=== PATIENT | female | born 1965 | race Caucasian/White ===

== ENCOUNTER 2017-11-09 13:12 | Emergency (ER) | payer MEDICAID ==
[~2017-11-09] VITALS: Ht 160 cm; Wt 99.6 kg
[2017-11-09 13:20] VITALS: BP 138/89
[2017-11-09] MEDS ORDERED: ACETAMINOPHEN 500 MG TABLET ONE (13:59)
[2017-11-09] MEDS ORDERED: ACETAMINOPHEN 500 MG TABLET PO ONE (14:00)
[2017-11-09] MEDS ORDERED: AMLO10TA2 PO (14:10)
[2017-11-09] MEDS ORDERED: BACL-19 PO (14:10)
== END 2017-11-09 14:59 | disposition home or self-care (01) ==
LOC: ED 14:15
DX: M25.561 Pain in right knee (principal); I10 Essential (primary) hypertension
CPT/HCPCS: 99284

== ENCOUNTER 2017-12-11 22:57 | Emergency (ER) | payer MEDICAID ==
[~2017-12-11] VITALS: Ht 162.6 cm; Wt 100.0 kg
[~2017-12-11 22:57] MED LIST: AMLO10TA6 PO; BACL-19 PO
[2017-12-11 23:04] VITALS: BP 168/102
[2017-12-11] MEDS ORDERED: PROPARACAINE OPHTH 0.5%, 15ML ONE (23:30)
[2017-12-11] MEDS ORDERED: FLUORESCEIN OPHTHALMIC 1 MG STRIP LEFTEYE ONE (23:30)
[2017-12-11] MEDS ORDERED: PROPARACAINE OPHTH 0.5%, 15ML LEFTEYE ONE (23:30)
== END 2017-12-12 00:33 | disposition home or self-care (01) ==
LOC: ED 23:16
DX: S46.911A Strain of unspecified muscle, fascia and tendon at shoulder and upper arm level, right arm, initial encounter (principal); L03.213 Periorbital cellulitis; I10 Essential (primary) hypertension; X58.XXXA Exposure to other specified factors, initial encounter; Y93.89 Activity, other specified; Y92.89 Other specified places as the place of occurrence of the external cause; Y99.8 Other external cause status
CPT/HCPCS: 99284

== ENCOUNTER 2018-06-20 10:31 | Outpatient (CLI) | payer MEDICAID ==
[~2018-06-20 10:31] MED LIST changes: -AMLO10TA6 PO; +AMLO10TA8 PO
[2018-06-20] MEDS ORDERED: GABAPENTIN PO (11:02)
[2018-06-28] MEDS ORDERED: OXYC5CAP2 PO (20:53)
== END 2018-06-20 23:59 | disposition home or self-care (01) ==
LOC: STAR 10:31
PROVIDERS: ATTEND Orthopaedic Surgery
DX: Z02.9 Encounter for administrative examinations, unspecified (principal)

== ENCOUNTER 2018-06-27 07:54 | Day surgery (SDC) | payer MEDICAID ==
[~2018-06-27] VITALS: Ht 160 cm; Wt 100.5 kg
[~2018-06-27 07:54] MED LIST changes: +ACETAMINOPHEN 325 MG TABLET PO PRN; +GABAPENTIN PO; +HYDROmorphone 1 MG/ML, 1ML INJ IM PRN; +KETOROLAC 30 MG/1 ML IVPush SCH; +ONDANSETRON 2MG/ML, 2ML IVPush PRN; +OXYcodone/APAP 5/325MG TABLET PO PRN; +PROMETHAZINE 25 MG/ML, 1ML IM PRN
[2018-06-27] MEDS ORDERED: SCOPOLAMINE PATCH, 1.5MG PATCH.TD72 TD ONE (08:00)
[2018-06-27] MEDS ORDERED: ACETAMINOPHEN 500 MG TABLET PO ONE (08:00)
[2018-06-27] MEDS ORDERED: GABAPENTIN 300 MG CAPSULE PO ONE (08:00)
[2018-06-27 08:20] VITALS: BP 135/88
[2018-06-27] MEDS ORDERED: MIDAZOLAM 1 MG/ML, 2ML ONE (08:36)
[2018-06-27] MEDS ORDERED: FENTANYL PF 250 MCG/5ML ONE (08:36)
[2018-06-27] MEDS ORDERED: ROPIvacaine/PF 0.5%, 30 ML ONE (08:40)
[2018-06-27] MEDS ORDERED: PROPOFOL 10 MG/ML, 20ML ONE (08:41)
[2018-06-27] MEDS ORDERED: DEXAMETHASONE 4 MG/ML, 1ML ONE (08:41)
[2018-06-27] MEDS ORDERED: CEFAZOLIN 1,000 MG ONE (08:41)
[2018-06-27] MEDS ORDERED: ONDANSETRON 2MG/ML, 2ML ONE (08:41)
[2018-06-27] MEDS ORDERED: LACTATED RINGERS 1,000 ML IV SCH (09:28)
[2018-06-27] MEDS ORDERED: ROCURONIUM 10MG/ML,5ML ONE (09:57)
[2018-06-27] MEDS ORDERED: SUCCINYLCHOLINE 20 MG/ML, 10ML ONE (09:57)
[2018-06-27] MEDS ORDERED: hydrALAzine 20 MG/ML, 1ML IV PRN (10:30)
[2018-06-27] MEDS ORDERED: ONDANSETRON ODT 8 MG PO PRN (10:30)
[2018-06-27] MEDS ORDERED: LABETALOL 5MG/ML, 20ML IV PRN (10:30)
[2018-06-27] MEDS ORDERED: PROMETHAZINE 25 MG SUPP PR PRN (10:30)
[2018-06-27] MEDS ORDERED: ONDANSETRON 2MG/ML, 2ML IV PRN (10:30)
[2018-06-27] MEDS ORDERED: FENTANYL PF 100 MCG/2ML IV PRN (10:30)
[2018-06-27] MEDS ORDERED: PROMETHAZINE 12.5 MG SUPP PR PRN (10:30)
[2018-06-27] MEDS ORDERED: PROMETHAZINE 25 MG/ML, 1ML IV PRN (10:30)
[2018-06-27] MEDS ORDERED: MEPERIDINE/PF 25MG/0.5ML IVPush PRN (10:30)
[2018-06-27] MEDS ORDERED: PROMETHAZINE 25 MG/ML, 1ML IM PRN ×2 (10:30)
[2018-06-27] MEDS ORDERED: MORPHINE SULFATE 4 MG/ML, 1ML IVPush PRN (10:30)
[2018-06-27] MEDS ORDERED: HYDROmorphone 2 MG/ML, 1ML IVPush PRN (10:30)
[2018-06-27] MEDS ORDERED: FENTANYL PF 100 MCG/2ML ONE (11:56)
[2018-06-27] MEDS ORDERED: OXYcodone 5 MG/5 ML ORAL.SOL UDC ONE (12:09)
[2018-06-27] MEDS: OXYcodone 5 MG/5 ML ORAL.SOL UDC PO PRN ×2 (12:09→16:58)
[2018-06-27] MEDS ORDERED: ACETAMINOPHEN 325 MG TABLET PO PRN (14:00)
[2018-06-28] MEDS ORDERED: OXYC5CAP2 PO (20:53)
== END 2018-06-27 17:15 | disposition home or self-care (01) ==
LOC: OUT 07:54
PROVIDERS: ATTEND Orthopaedic Surgery
DX: T84.84XA Pain due to internal orthopedic prosthetic devices, implants and grafts, initial encounter (principal); D64.9 Anemia, unspecified; I25.10 Atherosclerotic heart disease of native coronary artery without angina pectoris; I10 Essential (primary) hypertension; F17.210 Nicotine dependence, cigarettes, uncomplicated; Z72.89 Other problems related to lifestyle; Y83.8 Other surgical procedures as the cause of abnormal reaction of the patient, or of later complication, without mention of misadventure at the time of the procedure; Y92.89 Other specified places as the place of occurrence of the external cause
CPT/HCPCS: 20680; 64447; 73590; 76000; J0330; J0690; J1100; J2250; J2405; J2704; J2795; J3010; 76001

== ENCOUNTER 2018-10-09 09:58 | Outpatient (CLI) | payer MEDICAID ==
[~2018-10-09 09:58] MED LIST changes: -ACETAMINOPHEN 325 MG TABLET PO PRN; -HYDROmorphone 1 MG/ML, 1ML INJ IM PRN; -KETOROLAC 30 MG/1 ML IVPush SCH; -ONDANSETRON 2MG/ML, 2ML IVPush PRN; +OXYC5CAP2 PO; -OXYcodone/APAP 5/325MG TABLET PO PRN; -PROMETHAZINE 25 MG/ML, 1ML IM PRN
[2018-10-09] MEDS ORDERED: ACET-1600 PO (10:24)
[2018-10-09] MEDS ORDERED: GABA300C10 PO (10:24)
[2018-10-09] MEDS ORDERED: GABA100C PO (10:24)
[2018-10-09] MEDS ORDERED: MELO7.5T31 PO (10:39)
[2018-10-09 14:27] LABS: BASOPHILS # (AUTO) 0.03 x10^3/uL (0-0.1); BASOPHILS % (AUTO) 0 % (0-1); EOSINOPHILS % (AUTO) 1 % (1-7); LYMPHOCYTES # (AUTO) 1.83 x10^3/uL (1-3.4); LYMPHOCYTES % (AUTO) 22 % (22-44); MD NO; MEAN CORPUSCULAR HEMOGLOBIN 32.1 pg (27.0-34.8); MEAN CORPUSCULAR HGB CONC 33.4 g/dL (32.4-35.8); MEAN CORPUSCULAR VOLUME 96.1 fL (80-100); MEAN PLATELET VOLUME 10.1 fL (7.4-10.4); MONOCYTES # (AUTO) 0.64 x10^3/uL (0.2-0.8); MONOCYTES % (AUTO) 8 % (2-9); NEUTROPHILS % (AUTO) 70 % (42-75); PLATELET COUNT 175 x10^3/uL (130-400); RED BLOOD COUNT 5.51 x10^6/uL (3.82-5.3); RED CELL DISTRIBUTION WIDTH 14.4 % (9.6-15.2)
[2018-10-09 14:29] LABS: ANION GAP 6 mmol/L (5-15); CHLORIDE 111 mmol/L (98-107)
[2018-10-09 14:30] LABS: CREATININE 1.01 mg/dL (0.55-1.02)
[2018-10-09 14:36] LABS: INTERNATIONAL NORMALIZED RATIO 1.01 (0.93-1.1); PROTHROMBIN TIME 10.6 Seconds (9.6-11.5)
[2018-10-17] MEDS ORDERED: TRAM50TA2 PO (23:53)
[2018-10-17] MEDS ORDERED: OXYC5CAP2 PO (23:54)
== END 2018-10-09 23:59 | disposition home or self-care (01) ==
LOC: STAR 09:58
PROVIDERS: ATTEND Orthopaedic Surgery
DX: Z01.818 Encounter for other preprocedural examination (principal); M17.12 Unilateral primary osteoarthritis, left knee; I51.7 Cardiomegaly
CPT/HCPCS: 36415; 80048; 83036; 85025; 85610; 85730; 87081; 93005

== ENCOUNTER 2018-10-17 05:12 | Observation (INO) | payer MEDICAID ==
[~2018-10-17] VITALS: Ht 160 cm; Wt 107.0 kg
[2018-10-18 13:44] VITALS: BP 139/90
== END 2018-10-18 15:20 | disposition home or self-care (01) ==
LOC: OUT 05:12 → 4NOR 09:42 → OUT 20:31 → DCLOUNGE 10-18 15:10
PROVIDERS: ADMIT Orthopaedic Surgery; ATTEND Orthopaedic Surgery
DX: M17.12 Unilateral primary osteoarthritis, left knee (principal)
CPT/HCPCS: 27447; 36415; 85014; 85018; 96365; 96366; 96375; 97110; 97162; 97165; C1713; C1776; G0378; J0171; J0330; J0690; J1100; J1170; J1885; J2250; J2405; J2704; J2795; J3010; J3370; J3490; J7120

== ENCOUNTER 2020-02-09 11:48 | Emergency (ER) | payer MEDICAID ==
[~2020-02-09] VITALS: Ht 160 cm; Wt 99.5 kg
[~2020-02-09 11:48] MED LIST changes: +ACET-1600 PO; +AMLO-211 PO; -AMLO10TA8 PO; +GABA100C PO; +GABA300C10 PO; +MELO7.5T31 PO; +TRAM50TA2 PO
[2020-02-09] MEDS ORDERED: ACETAMINOPHEN 500 MG TABLET ONE (12:18)
[2020-02-09] MEDS ORDERED: ACETAMINOPHEN 500 MG TABLET PO ONE (12:30)
--- NOTE | 2020-02-09 12:57 | NUR ---
REPORT TO MATHEW SANCHEZ.
--- NOTE | 2020-02-09 12:57 | NUR ---
RECEIVED REPORT FROM [facility]
[2020-02-09 13:04] VITALS: BP 130/91
--- NOTE | 2020-02-09 13:42 | NUR ---
Patient given discharge instructions and they have confirmed that they understand the instructions. Patient ambulatory with steady gait.
== END 2020-02-09 13:43 | disposition home or self-care (01) ==
LOC: ED 13:15
DX: S90.01XA Contusion of right ankle, initial encounter (principal); X58.XXXA Exposure to other specified factors, initial encounter; Y93.89 Activity, other specified; Y92.512 Supermarket, store or market as the place of occurrence of the external cause; Y99.8 Other external cause status
CPT/HCPCS: 99283